=== PATIENT | female | born 1960 | race Two or more races ===

== ENCOUNTER → 2017-09-11 | Outpatient (CLI) | payer BC | LOC: BRMIMAGING 13:57 | PROVIDERS: ATTEND Internal Medicine | DX: M19.041 Primary osteoarthritis, right hand (principal); M19.042 Primary osteoarthritis, left hand; M19.071 Primary osteoarthritis, right ankle and foot; M19.072 Primary osteoarthritis, left ankle and foot; M25.561 Pain in right knee; M25.562 Pain in left knee | CPT/HCPCS: 73130-PO; 73562-PO; 73630-PO ==